=== PATIENT | female | born 1950 | race Caucasian/White ===

== ENCOUNTER → 2017-02-17 | Outpatient (CLI) | payer MEDICARE ==
[2017-02-17 10:50] LABS: EKG EKG PERFORMED
[2017-02-17 11:18] LABS: Appearance,Urine Clear (Clear); Bilirubin,Urine Negative (Negative); CH 32.3; CHCM 34.2; Glucose,Urine (UA) Negative (Negative); HCT 41.2 % (34.0-46.0); HDW 2.43; HGB 13.7 gm/dL (11.4-16.0); Ketones,Urine Negative (Negative); Leukocyte Esterase,Urine Negative (Negative); MCH 31.7 pg (25.0-35.0); MCHC 33.3 g/dL (31.0-37.0); MCV 95.1 fL (80.0-100.0); Mean Platelet Volume 7.5; Nitrite,Urine Negative (Negative); Protein,Urine Negative (Negative); RBC 4.33 m/uL (3.80-5.40); RDW 13.9 % (11.5-15.5); Specific Gravity,Urine 1.011 (1.001-1.035); UA Billing (MACRO vs. MICRO) CHEM; Urobilinogen,Urine <2.0 mg/dL (<2.0)
[2017-02-17 11:30] LABS: Prothrombin Time 10.4 sec (9.0-12.0)
[2017-02-17 11:41] LABS: ALT 30 U/L (9-52); AST 18 U/L (14-36); Alkaline Phosphatase 63 U/L (38-126); Anion Gap 8 mmol/L; Blood Urea Nitrogen 11 mg/dL (7-17); Calcium 9.5 mg/dL (8.4-10.2); Carbon Dioxide 24 mmol/L (22-30); Chloride 104 mmol/L (98-107); Glucose 88 mg/dL (74-99); Non-African American GFR(MDRD) >60 (>60 ml/min/1.73 sqM); Potassium 4.3 mmol/L (3.5-5.1); Sodium 136 mmol/L (137-145); Total Bilirubin 0.5 mg/dL (0.2-1.3); Total Protein 6.5 g/dL (6.3-8.2)
== END | disposition home or self-care (01) ==
LOC: LABPAT 10:34
PROVIDERS: ATTEND Orthopaedic Surgery
DX: Z01.810 Encounter for preprocedural cardiovascular examination (principal); Z79.01 Long term (current) use of anticoagulants
CPT/HCPCS: 36415; 80053; 81003; 85027; 85610; 85730; 87070; 93005

== ENCOUNTER 2017-02-28 08:12 | Inpatient (IN) | payer MEDICARE ==
[2017-02-18 16:29] VITALS: BMI 26.4
[~2017-02-28 08:12] MED LIST: ACETAMINOPHEN TAB 500 MG TAB PO ONE; DEXAMETHASONE SOD PHOSPHATE 10 MG/ML 1 ML VIAL IV ONE; HYDROmorphone 0.5 MG/0.5 ML SYRINGE IVP PRN; MELOXICAM 7.5 MG TAB PO ONE; MIDAZOLAM 2 MG/2 ML VIAL IV PRN; ONDANSETRON 4 MG/2 ML VIAL IVP ONE; SCOPOLAMINE 1.5MG/72HR PATCH TRANSDERM ONE; TRANEXAMIC ACID 1,000 MG in SODIUM CHLORIDE 0.9% 100 ML IVPB ONE; ceFAZolin 2 GM in SODIUM CHLORIDE 0.9% 100 ML IVPB ONE
[2017-02-28] MEDS: LACTATED RINGERS 1,000 ML IV SCH (11:24)
[2017-02-28] MEDS ORDERED: LIDOCAINE 1% 20 ML VIAL (10MG/ML) FOR IV START INTRADERMA ONE (11:25)
[2017-02-28] MEDS ORDERED: ONDANSETRON 4 MG/2 ML VIAL IVP PRN (11:30)
[2017-02-28] MEDS ORDERED: HYDROmorphone 0.5 MG/0.5 ML SYRINGE IVP PRN ×2 (11:30)
[2017-02-28] MEDS ORDERED: MAGNESIUM HYDROXIDE 2,400 MG/10 ML CUP PO PRN (11:30)
[2017-02-28] MEDS ORDERED: DIAZEPAM 5 MG TAB PO PRN ×2 (11:30)
[2017-02-28] MEDS ORDERED: HYDROcodone/APAP 5-325MG 1 EACH TAB PO PRN (11:30)
[2017-02-28] MEDS ORDERED: NALOXONE 0.4 MG/ML 1 ML VIAL IV PRN (11:30)
[2017-02-28] MEDS ORDERED: ROPIVACAINE 246.25 MG, EPINEPHrine 0.5 MG, KETOROLAC 30 MG, cloNIDine HCL/PF 80 MCG, WA... MISCELLANE ONE ×5 (11:35)
[2017-02-28] MEDS ORDERED: PROPOFOL 10 MG/ML 20 ML VIAL IV ONE (12:32)
[2017-02-28] MEDS ORDERED: SODIUM CHLORIDE 0.9% IRRIG 1,000 ML BTL IRRIGATION ONE (12:32)
[2017-02-28] MEDS ORDERED: PHENYLEPHRINE-0.9% NACL SYG 1 MG/10 ML SYRINGE ONE (12:32)
[2017-02-28] MEDS ORDERED: fentaNYL (PF) 50 MCG/ML 2 ML AMP ONE (12:32)
[2017-02-28] MEDS ORDERED: MIDAZOLAM 2 MG/2 ML VIAL ONE (12:32)
[2017-02-28] MEDS ORDERED: ePHEDrine SULFATE/0.9% NACL/PF 50 MG/5 ML SYRINGE IV ONE (12:32)
[2017-02-28] MEDS ORDERED: HEPARIN SODIUM,PORCINE 10,000 UNIT/ML 1 ML VIAL ONE (12:32)
[2017-02-28] MEDS ORDERED: TRANEXAMIC ACID 1,000 MG/10 ML VIAL ONE (12:32)
[2017-02-28] MEDS ORDERED: SODIUM CHLORIDE 0.9% 100 ML BAG ONE (12:32)
[2017-02-28] MEDS ORDERED: ceFAZolin 3,000 MG in SODIUM CHLORIDE 0.9% IRRIGATIO 3,000 ML IRRIGATION ONE (13:08)
[2017-02-28] MEDS ORDERED: LACTATED RINGERS 1,000 ML IV ONE (13:15)
--- NOTE | 2017-02-28 14:12 | P.OP ---
Date of Procedure: 02/28/17 Preoperative Diagnosis: Severe osteoarthritis right hip Postoperative Diagnosis: Severe osteoarthritis right hip Procedure(s) Performed: Right total hip arthroplasty with a direct anterior approach Implants: Reyes and nephew Polarstem size 4 standard Reyes [employer] Nephew R3, 3 hole acetabular shell, 52 mm Reyes [employer] Nephew reflection 6.5 mm cancellus screw, 25 mm 2 Reyes [employer] Nephew R3, XLPE 20 acetabular liner Reyes [employer] Nephew Oxinium femoral head 36 m, +8 All components were press-fit. The articulation is ceramic on polyethylene. Anesthesia: spinal Surgeon: Rubio Cramer Superintendent Meters #1: Yesenia Lunsford Estimated Blood Loss (ml): 250 (100 mL returned with Cell Saver) Pathology: other (Femoral head) Condition: stable Disposition: PACU Indications for Procedure: After failure of conservative treatment we discussed the surgical and nonsurgical treatment options at length. Patient wishes to proceed with a total hip arthroplasty with a direct anterior approach. Complications specific to this procedure were discussed at length, including but not limited to infection, leg length discrepancy, dislocation, and nerve injury. Patient is aware of all these complications and informed consent was obtained Operative Findings: The operative findings are consistent with severe osteoarthritis of the right hip Description of Procedure: Patient was seen and evaluated in the preoperative area, consent was reviewed, and the surgical site was marked with a skin marker. Patient was then brought to the operating room and given prophylactic antibiotics intravenously. 1 g of Tranexamic acid was also given. A spinal anesthetic was administered by the anesthesia department. The patient was then placed on the [place]vel[place] table with the bony prominences well-padded. The hip area was then prepped and draped in usual sterile fashion. A universal timeout was then performed, which confirmed the patient's name, surgical site, ALLERGIES, and procedure being performed. Next the incision site was located at 1 cm distal and 1 cm lateral to the anterior superior iliac spine. The skin and subcutaneous tissues were sharply incised. Incision was carefully dissected down to the fascia overlying the tensor fascia josesito muscle. This fascia was then incised in line with the incision. Next, using blunt finger dissection, the tensor fascia josesito muscle was dissected off its investing fascia. The muscle was then carefully retracted laterally with a cobra retractor over the lateral neck of the femur. Next, the circumflex vessels were identified and cauterized using the AquaMantis device. The anterior hip capsule was then exposed. The capsule was then opened and an inverted T fashion. Cobra retractors were then placed intracapsularly. The proximal femur was then visualized. The femoral neck was then osteotomized appropriate level above the lesser trochanter. Small amount of traction was placed with the Gravelly table. A small wedge of bone was then removed from the remaining femoral head. Next, using a corkscrew femoral head was easily removed from the acetabulum. On gross visual inspection, the femoral head had complete loss of articular cartilage in multiple periarticular osteophytes. Attention was then turned to the acetabulum. the acetabulum was exposed and any remaining labrum was excised. Sequential reaming of the acetabulum was performed using fluoroscopic guidance. When the appropriate size was reached, a trial was then placed. The position and fit of the trial was checked with fluoroscopy. The trial was then removed. Then, using fluoroscopic guidance, the final implant was impacted at 20 of anteversion and 40 of abduction, and fully seated in the acetabulum. 2 screws were then placed in the acetabulum. Again fluoroscopy was used to check position of the screws. Next, the liner was then impacted, with a 20 elevated liner located in the anterior superior quadrant. Component locking was confirmed. Attention was then directed to the femur. With the aid of the Gravelly table, the femur was externally rotated to approximately 130, extended, and abducted under the opposite leg. A side hook was then placed under the proximal femur, and the side hook elevator was used to elevate the proximal femur. Retractors were then placed. A capsular release was performed, as well as a release of the conjoined tendon, which afforded excellent visualization of the proximal femur. Next, a box osteotome was used to lateralize the proximal femur. A hand router operator was then used to locate the femoral canal. Sequential broaching was then performed with appropriate size which afforded excellent fixation in the proximal femur. A trial was then placed with appropriate head and neck, and the hip was gently reduced with the aid of the Gravelly table. Fluoroscopy was then used to check position of the components, as well as to ensure equal leg lengths. The hip was then gently dislocated and the trials were then removed. Final implants were then impacted and the hip was again reduced. Final fluoroscopic x-rays confirmed that the components were in anatomic position, as well as equal leg lengths. The hip was also taken through range of motion, and found to be stable. The hip was then copiously irrigated with antibiotic solution with pulsatile lavage. The hip was then irrigated with Irrisept solution. The soft tissues were then injected with a ropivacaine solution, which consisted of 246.25 mg of ropivacaine, 0.5 mg of epinephrine, 30 mg of Toradol, 80 g of clonidine, and 48.45 mL of sterile water, for a total of 100 mL of fluid injected. A second dose of 1 g of Tranexamic acid was also given. the fascia was then closed with 2-0 strata fix suture. The subcutaneous tissue was closed with 3-0 Vicryl. The subcuticular tissue was closed with 3-0 strata fix suture. The skin was then closed with Dermabond tape. The patient was then transferred to the recovery room in stable condition. The assistant laboratory director CAPO Valentine was required due to the complexity of surgery, and the need for skilled certified surgical first assistant for positioning, draping, exposure, retraction, and closure of the wound.
--- NOTE | 2017-02-28 15:01 | XR ---
Fluoroscopy History: RT ANT. HIP RT ANT HIP. DR JONES. 52 SEC FLUORO TIME. 2 OR FILMS.
[2017-02-28] MEDS: HYDROcodone/APAP 5-325MG 1 EACH TAB PO PRN (17:46)
[2017-02-28] MEDS: hydrOXYzine PAMOATE 25 MG CAP PO PRN (17:47)
[2017-02-28] MEDS: SODIUM CHLORIDE 0.9% 1,000 ML IV SCH (18:22)
[2017-02-28 20:06] VITALS: RESP 16
[2017-02-28] MEDS: HYDROmorphone 0.5 MG/0.5 ML SYRINGE IVP PRN (20:40)
[2017-02-28] MEDS: ceFAZolin 2 GM in SODIUM CHLORIDE 0.9% 100 ML IVPB SCH (20:41)
[2017-02-28] MEDS: ASPIRIN 325 MG TAB PO SCH (20:48)
[2017-02-28] MEDS ORDERED: SENNOSIDES-DOCUSATE SODIUM 1 EACH TAB PO SCH (21:00)
[2017-02-28] MEDS ORDERED: MELATONIN 3 MG TABLET PO SCH (21:00)
[2017-03-01] MEDS: HYDROmorphone 0.5 MG/0.5 ML SYRINGE IVP PRN ×2 (02:24→05:37)
[2017-03-01] MEDS: LACTATED RINGERS 1,000 ML IV SCH (05:38)
[2017-03-01] MEDS: SODIUM CHLORIDE 0.9% 1,000 ML IV SCH (05:38)
[2017-03-01] MEDS: ceFAZolin 2 GM in SODIUM CHLORIDE 0.9% 100 ML IVPB SCH (06:11)
[2017-03-01 07:21] LABS: Basophils % (A) 0 %; CH 32.3; CHCM 33.4; Eosinophils % (A) 1 %; HCT 32.1 % (34.0-46.0); HDW 2.37; Luc # (Auto) 0.08; Luc % (Auto) 1; Lymphocytes # (A) 1.2 k/uL (1.0-4.8); Lymphocytes % (A) 18 %; MCH 31.4 pg (25.0-35.0); MCHC 32.4 g/dL (31.0-37.0); MCV 97.1 fL (80.0-100.0); Mean Platelet Volume 7.4; Monocytes # (A) 0.5 k/uL (0-1.0); Monocytes % (A) 8 %; Neutrophils # (A) 4.9 k/uL (1.3-7.7); Neutrophils % (A) 72 %; RBC 3.31 m/uL (3.80-5.40); RDW 13.8 % (11.5-15.5); WBC 6.7 k/uL (3.8-10.6)
--- NOTE | 2017-03-01 07:34 | CONS ---
CONSULTATION DATE OF CONSULTATION: 02/28/2017 REASON FOR CONSULTATION: Medical management requested by Dr. Cramer. CONSULTATION: This is a very pleasant, 66-year-old patient of Dr. Alyssa Brand. Has undergone a right total hip arthroplasty. Some pain is present. No nausea or vomiting. Chronic stable medical conditions include hyperlipidemia, osteoarthritis of the joints, scoliosis, constipation, trouble sleeping. Denies any cardiac history. REVIEW OF SYSTEMS: CONSTITUTIONAL: None. HEENT: None. RESPIRATORY: None. CARDIOVASCULAR: None. GASTROINTESTINAL: Constipation. GENITOURINARY: None. MUSCULOSKELETAL: Arthritic pain in the joints. DERMATOLOGICAL: None. HEMATOLOGIC: None. LYMPHATIC: None. PSYCHIATRY: None. NEUROLOGICAL: Difficulty sleeping. PAST MEDICAL HISTORY: Hyperlipidemia, osteoarthritis, scoliosis, constipation, insomnia. PAST SURGICAL HISTORY: Appendectomy, joint replacement, left hip replacement, bilateral LASIK and cataract surgery, upper dental implants. SOCIAL HISTORY: The patient stopped smoking 34 years ago. Smoked for 14 years. . Drinks a vodka a night. FAMILY HISTORY: Reviewed, noncontributory to presentation. HOME MEDICATIONS: 1. Valacyclovir 2000 mg p.o. q.12 p.r.n. 2. Advil 200 mg q.6. 3. Vitamin D3 2000 units p.o. daily. 4. Aspirin 81 mg p.o. daily. 5. Amoxicillin 500 mg p.o. q.8 p.r.n. 6. Tylenol arthritis. 7. Senokot S 1 tablet p.o. b.i.d. 8. [place] 5 1-2 tablets q.4 p.r.n. ALLERGIES: None. PHYSICAL EXAMINATION: Temperature 97, pulse 73, respirations 17, blood pressure 129/66, pulse ox 96% on room air. GENERAL: Average built. Propped up, but sitting up, comfortable. Awake. EYES: Pupils equal. Conjunctivae normal. HEENT: Oral cavity normal. NECK: JVD not raised. Mass not palpable. RESPIRATORY: Effort. Lungs are clear. CARDIOVASCULAR: First and second sounds normal. No edema. ABDOMEN: Soft, nontender. Liver and spleen not palpable. LYMPHATIC: No lymph node palpable in the neck or axillae. PSYCHIATRY: Alert and oriented x3. Mood and affect normal. MUSCULOSKELETAL: Dressing over the right hip. Evidence of osteoarthritis especially in the hands and knees. INVESTIGATIONS: Blood work from 02/17/17 shows white count of 5, hemoglobin 13.7, potassium 4.3, BUN and creatinine normal. UA is negative. ASSESSMENT: 1. Right total hip arthroplasty. 2. Primary osteoarthritis of multiple joints bilateral. 3. Hyperlipidemia. 4. Scoliosis. 5. Chronic constipation, idiopathic. 6. Chronic insomnia. PLAN: Home medications were resumed. Patient getting aspirin for DVT prophylaxis per Dr. Cramer. We will add melatonin. Care was discussed with the patient. Questions were answered. Thank you, Dr. Cramer. MMMIESHAL / SHANTHIN: [id number] /
[2017-03-01 07:38] LABS: HGB 10.4 gm/dL (11.4-16.0)
[2017-03-01 08:21] VITALS: BP 107/71; PULSE 69; TEMP 97.7
[2017-03-01] MEDS: ASPIRIN 325 MG TAB PO SCH (08:25)
[2017-03-01] MEDS: MELOXICAM 7.5 MG TAB PO SCH ×2 (08:25→08:26)
[2017-03-01] MEDS: hydrOXYzine PAMOATE 25 MG CAP PO PRN (08:26)
[2017-03-01] MEDS: HYDROcodone/APAP 5-325MG 1 EACH TAB PO PRN (08:26)
--- NOTE | 2017-03-01 10:46 | P.DS ---
Providers Date of admission: 02/28/17 10:44 Expected date of discharge: 03/01/17 Attending physician: Rubio Cramer Consults: 02/28/17 11:30 Consult Physician Routine Consulting Provider: Brenden Shearer Consult Reason/Comments: medical management Do you want consulting provider notified?: Yes - Discharge Diagnosis(es) (1) Primary osteoarthritis of right hip Current Visit: Yes Status: Acute (2) Status post total hip replacement, right Current Visit: Yes Status: Acute Hospital Course: This is a 66-year-old female with known history of degenerative arthritis of the right hip. The patient presents for evaluation. After discussion and consideration patient elects to proceed with total hip arthroplasty with anterior approach. The patient is seen preoperatively by her primary care physician and cleared for surgery. Patient is admitted to [facility] on 02/28/2017 for total hip arthroplasty with anterior approach. The procedures performed without complication or sequelae. The patient is doing well postoperatively. Labs and vital signs are stable on day of discharge. On day of discharge patient's hip incision is healing well. There is minimal erythema. There is no drainage noted at this time. There is minimal soft tissue swelling to the hip and thigh. Patient has full foot and ankle motion without difficulty or pain. Neurovascular status to the right lower extremity is intact. Patient is discharged to home in good condition. Please see med rec for accurate list of home medications. Plan - Discharge Summary New Discharge Prescriptions: New Aspirin 325 mg PO BID #60 tab HYDROcodone/APAP 5-325MG [[place] 5-325] 1 - 2 tab PO Q4-6H PRN #90 tab PRN Reason: Pain Sennosides-Docusate Sodium [Senokot-S] 1 tab PO BID #60 tablet No Action Ibuprofen [Advil] 200 mg PO Q6HR valACYclovir [Valtrex] 2,000 mg PO Q12H PRN PRN Reason: Cold Sores Amoxicillin 500 mg PO Q8H PRN PRN Reason: See Comments Cholecalciferol (Vitamin D3) [Vitamin D3] 2,000 unit PO DAILY Aspirin [Adult Low Dose Aspirin EC] 81 mg PO DAILY Acetaminophen [Tylenol Arthritis] 650 mg PO Q8H Discharge Medication List Acetaminophen [Tylenol Arthritis] 650 mg PO Q8H 02/18/17 [History] Amoxicillin 500 mg PO Q8H PRN 02/18/17 [History] Aspirin [Adult Low Dose Aspirin EC] 81 mg PO DAILY 02/18/17 [History] Cholecalciferol (Vitamin D3) [Vitamin D3] 2,000 unit PO DAILY 02/18/17 [History] Ibuprofen [Advil] 200 mg PO Q6HR 02/18/17 [History] valACYclovir [Valtrex] 2,000 mg PO Q12H PRN 02/18/17 [History] Aspirin 325 mg PO BID #60 tab 02/28/17 [Rx] HYDROcodone/APAP 5-325MG [[place] 5-325] 1 - 2 tab PO Q4-6H PRN #90 tab 02/28/17 [ Rx] Sennosides-Docusate Sodium [Senokot-S] 1 tab PO BID #60 tablet 02/28/17 [Rx] Follow up Appointment(s)/Referral(s): Rubio Cramer DO [Doctor of Osteopathic Medicine] - 2 Weeks Activity/Diet/Wound Care/Special Instructions: Weightbearing as tolerated with walker May shower after 2 days if no drainage from the incision Follow-up with [facility] in 2 weeks with any questions or concerns Discharge Disposition: HOME WITH HOME HEALTH SERVICES
--- NOTE | 2017-03-01 17:00 | P.PN ---
Progress Note - Text Progress Note Date: 03/01/17 DATE OF SERVICE: 03/01/2017 PRESENTING COMPLAINT: right total hip arthroplasty HISTORY OF PRESENT ILLNESS: 66-year-old female who is status post right total hip arthroplasty INTERVAL HISTORY: 03/01/2017: no acute overnight events.Patient sitting up in the chair appears comfortable. Agreeable to work with physical therapy. Pain is well-controlled. Tolerating her diet. Ambulatory with a walker. REVIEW OF SYSTEMS: Done for constitutional ,cardiovascular, GI, pulmonary with relevant findings as above. CURRENT MEDICATIONS [place], aspirin, so [place], Valium,Vistaril, melatonin, Mobic, Versed. PHYSICAL EXAM VITAL SIGNS: temperature 97.7, pulse 69, respiratory rate 16, blood pressure 107/71, oxygen saturation 97% on room air. GENERAL APPEARANCE: Lying in bed, not in distress. EYES: Pupils equal. Conjunctiva normal. NECK: JVD not raised. Mass not palpable. RESPIRATORY: Respiratory effort normal. Lungs clear to auscultation. CARDIOVASCULAR: First and second sounds normal. No edema. ABDOMEN: Soft. Liver and spleen not palpable. No tenderness. No mass palpable. PSYCHIATRY: Alert and oriented x3. Mood and affect normal. INTEGUMENT: Right hip dressing clean dry and intact no drainage noted. INVESTIGATIONS: ASSESSMENT: -Right total hip arthroplasty. -Primary osteoarthritis of multiple joints bilateral. -Hyperlipidemia. -Scoliosis,. -Chronic constipation, idiopathic. -Chronic insomnia. PLAN: continue current medication and treatment plan per orthopedics patient is likely to discharge today. METAL OFF BEARER statement: Patient was seen and examined by nurse practitioner Laura Barboza and all elements of the case discussed with attending Dr. Shearer
--- NOTE | 2017-03-01 22:49 | PN ---
PROGRESS NOTE DATE OF SERVICE: 03/01/2017 ATTENDING NOTE: Patient was seen and examined by me. I discussed with my nurse practitioner, Ms. Barboza. The patient is doing better, has been out of bed, did work with therapy. No nausea, vomiting. Did tolerate her diet. Comfortable. EXAM: LUNGS: Clear. CARDIOVASCULAR: 1st and 2nd sounds normal. Afebrile, blood pressure 107/71. Hemoglobin 10.4. The patient is medically stable. If discharged, should follow up with her family doctor. MMODL / IJN: [id number] /
--- NOTE | 2017-03-03 10:14 | XR ---
Fluoroscopy History: RT ANT. HIP RT ANT HIP. DR JONES. 52 SEC FLUORO TIME. 2 OR FILMS. MTDD
--- NOTE | 2017-03-03 10:15 | XR ---
EXAMINATION TYPE: XR Hip Limited RT DATE OF EXAM: 02/28/2017 Prior report refers to different study [id number] CLINICAL HISTORY: Right hip pain and osteoarthritis. TECHNIQUE: Single AP portable view of right hip is obtained immediately postoperatively. COMPARISON: None. FINDINGS: Metallic hardware from right hip arthroplasty is seen and appears satisfactory in alignment and position. There is evidence of recent surgery with subcutaneous gas noted laterally. IMPRESSION: Metallic hardware from right hip arthroplasty is satisfactory in position. MTDD
== END 2017-03-01 14:15 | disposition home health service (06) | DRG 470 ==
LOC: 2ORMAIN 10:44 → 3SUR 14:45
PROVIDERS: ADMIT Orthopaedic Surgery; ATTEND Orthopaedic Surgery
PROC: 0SR906A Replacement of Right Hip Joint with Oxidized Zirconium on Polyethylene Synthetic Substitute, Uncemented, Open Approach (ICD-10-PCS; principal; 2017-02-28 12:30)
DX: M16.11 Unilateral primary osteoarthritis, right hip (principal); M41.9 Scoliosis, unspecified; E78.5 Hyperlipidemia, unspecified; K59.09 Other constipation; G47.00 Insomnia, unspecified; Z79.82 Long term (current) use of aspirin; Z79.2 Long term (current) use of antibiotics; Z79.1 Long term (current) use of non-steroidal anti-inflammatories (NSAID); Z79.899 Other long term (current) drug therapy; Z96.642 Presence of left artificial hip joint; Z87.891 Personal history of nicotine dependence; Z98.49 Cataract extraction status, unspecified eye
CPT/HCPCS: 73501; 85025; 86850; 86891; 86900; 86901; 88305; 88311; 93005